=== PATIENT | male | born 1995 | race Caucasian/White ===

== ENCOUNTER 2019-09-11 19:56 | Emergency (ER) | payer MEDICAID ==
[2019-09-11 20:41] VITALS: BP 121/69
[2019-09-11] MEDS ORDERED: Ibuprofen TAB* 600 MG PO ONE (20:47)
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
== END 2019-09-11 21:11 | disposition home health service (06) ==
LOC: UCCORT 19:56
DX: T23.251A Burn of second degree of right palm, initial encounter (principal); T23.241A Burn of second degree of multiple right fingers (nail), including thumb, initial encounter; X10.2XXA Contact with fats and cooking oils, initial encounter; Y92.9 Unspecified place or not applicable
CPT/HCPCS: 16020; 99202; A9270-GY; G0463